=== PATIENT | female | born 1955 | race Caucasian/White ===

== ENCOUNTER 2019-11-22 08:44 | Emergency (ER) | payer OTHER ==
[~2019-11-22] VITALS: Ht 162.6 cm; Wt 72.6 kg
== END 2019-11-22 16:57 | disposition home or self-care (01) ==
LOC: ER 08:44
DX: U07.1 COVID-19 (principal); B34.9 Viral infection, unspecified

== ENCOUNTER 2020-05-10 14:10 | Emergency (ER) | payer OTHER ==
[~2020-05-10] VITALS: Ht 162.6 cm; Wt 72.6 kg
[2020-05-10] MEDS ORDERED: PEPCID AC20 MG PO (14:27)
== END 2020-05-10 18:39 | disposition home or self-care (01) ==
LOC: ER 14:10
DX: J45.909 Unspecified asthma, uncomplicated (principal); Z20.822 Contact with and (suspected) exposure to COVID-19